=== PATIENT | female | born 1985 | race American Indian/Alaskan Native ===

== ENCOUNTER 2018-01-18 18:53 | Emergency (ER) | payer OTHER ==
[2018-01-18 20:58] LABS: Bacteria,Urine 1+ /HPF (Negative); Bilirubin,Urine NEG (Negative); Blood,Urine NEG (Negative); Color,Urine Yellow (Yellow); Mucus,Urine FEW /HPF; Urobilinogen,Urine < 2.0 mg/dL (<2.0)
[2018-01-18 21:01] LABS: HCG Qualitative,Urine Negative (Negative)
[2018-01-18] MEDS ORDERED: CATAPRES PO ONE (22:15)
--- NOTE | 2018-01-18 22:37 | Emergency Department Report ---
ED Female HPI - General Chief complaint: Urogenital-Female Stated complaint: SEVERE PAIN/BURNING IN VAGINA AREA Time Seen by Provider: 01/18/18 22:15 Source: patient Mode of arrival: Ambulatory Limitations: No Limitations - History of Present Illness Initial comments: This is a 32-year-old female nontoxic, well nourished in appearance, no acute signs of distress presents to the ED with c/o of dysuria, polyuria and vaginal irritation 2 days. Stated that she had a sexual activity without protection with albuterol prior to symptoms. Patient stated is she concerned about STD and wants empirical treatment. Patient denies any vaginal discharge or vaginal bleeding. Patient denies any fever, chills, nausea, vomiting, abdominal pain, body aches, back pain, numbness, tingling, headache, stiff neck, chest pain or shortness of breath. Patient denies any drug allergies. Past medical history includes prediabetes and patient stated she currently does not take any medication for this. MD Complaint: dysuria, possible STD -: days(s) (2) Radiation: non-radiating Severity: mild Severity scale (0 -10): 3 Quality: burning Consistency: constant Improves with: none Worsens with: urination Are you Now?: No Associated Symptoms: dysuria. denies: vaginal discharge, vaginal bleeding, abdominal pain, nausea/vomiting, fever/chills, headaches, loss of appetite, hematuria, rash, seizure, shortness of breath, syncope, weakness - Related Data Sexually active: Yes Previous Rx's Medication Instructions Recorded Last Taken Type Sulfamethoxazole/Trimethoprim 1 each PO BID #14 tablet 01/19/18 Unknown Rx [Bactrim DS TAB] amLODIPine [Norvasc] 5 mg PO DAILY #30 tab 01/19/18 Unknown Rx metFORMIN [Glucophage] 500 mg PO QDAY #30 tab 01/19/18 Unknown Rx metroNIDAZOLE [Flagyl] 500 mg PO Q12HR #14 tab 01/19/18 Unknown Rx Allergies Allergy/AdvReac Type Severity Reaction Status Date / Time No Known Allergies Allergy Unverified 01/18/18 19:03 ED Review of Systems ROS: Stated complaint: SEVERE PAIN/BURNING IN VAGINA AREA Other details as noted in HPI Constitutional: denies: chills, fever Eyes: denies: eye pain, eye discharge, vision change ENT: denies: ear pain, throat pain Respiratory: denies: cough, shortness of breath, wheezing Cardiovascular: denies: chest pain, palpitations Endocrine: no symptoms reported Gastrointestinal: denies: abdominal pain, nausea, diarrhea Genitourinary: urgency, dysuria, frequency. denies: discharge Musculoskeletal: denies: back pain, joint swelling, arthralgia Skin: denies: rash, lesions Neurological: denies: headache, weakness, paresthesias Psychiatric: denies: anxiety, depression Hematological/Lymphatic: denies: easy bleeding, easy bruising ED Past Medical Hx - Past Medical History Previous Medical History?: No Hx Diabetes: Yes (PREDIABETES) - Surgical History Past Surgical History?: No - Social History Smoking Status: Never Smoker Substance Use Type: None - Medications Home Medications: Home Medications Medication Instructions Recorded Confirmed Last Taken Type Sulfamethoxazole/Trimethoprim 1 each PO BID #14 tablet 01/19/18 Unknown Rx [Bactrim DS TAB] amLODIPine [Norvasc] 5 mg PO DAILY #30 tab 01/19/18 Unknown Rx metFORMIN [Glucophage] 500 mg PO QDAY #30 tab 01/19/18 Unknown Rx metroNIDAZOLE [Flagyl] 500 mg PO Q12HR #14 tab 01/19/18 Unknown Rx ED Physical Exam - General Limitations: No Limitations General appearance: alert, in no apparent distress - Head Head exam: Present: atraumatic, normocephalic - Eye Eye exam: Present: normal appearance Pupils: Present: normal accommodation - ENT ENT exam: Present: normal exam, mucous membranes moist - Neck Neck exam: Present: normal inspection, full ROM. Absent: tenderness, meningismus, lymphadenopathy - Respiratory Respiratory exam: Present: normal lung sounds bilaterally. Absent: respiratory distress, wheezes, rales, rhonchi, stridor, chest wall tenderness, accessory muscle use, decreased breath sounds, prolonged expiratory - Cardiovascular Cardiovascular Exam: Present: regular rate, normal rhythm, normal heart sounds. Absent: irregular rhythm, systolic murmur, diastolic murmur, rubs, gallop - GI/Abdominal GI/Abdominal exam: Present: soft, normal bowel sounds. Absent: distended, tenderness, guarding, rebound, rigid, diminished bowel sounds - Rectal Rectal exam: Present: deferred - External exam: Present: normal external exam, other (chaperoned Kathryn wastewater manager present during exam). Absent: erythema, swelling, lesions, lacerations, ecchymosis, bleeding Speculum exam: Present: normal speculum exam, other (chaperoned Kathryn wastewater manager present during exam). Absent: erythema, vaginal discharge, cervical discharge, vaginal bleeding, foreign body, tissue, laceration Bi-manual exam: Present: normal bi-manual exam, other (chaperoned Kathryn wastewater manager present during exam). Absent: cervical motion tendernes, adnexal tenderness, adnexal mass, uterine enlargement, uterine tenderness - Extremities Exam Extremities exam: Present: normal inspection, full ROM, normal capillary refill - Back Exam Back exam: Present: normal inspection, full ROM. Absent: tenderness, CVA tenderness (R), CVA tenderness (L), paraspinal tenderness, vertebral tenderness - Neurological Exam Neurological exam: Present: alert, oriented X3, normal gait - Psychiatric Psychiatric exam: Present: normal affect, normal mood - Skin Skin exam: Present: warm, dry, intact, normal color. Absent: rash ED Course Vital Signs 01/18/18 01/18/18 01/19/18 19:04 22:48 01:39 Temperature 99.1 F Pulse Rate 104 H 104 H Respiratory 20 Rate Blood Pressure 177/102 177/102 Blood Pressure 156/96 [Right] O2 Sat by Pulse 100 Oximetry - Reevaluation(s) Reevaluation #1: 01/18/18 22:36 Patient is speaking in full sentences with no signs of distress noted. - Consultations Consultation #1: 01/19/18 01:41 Patient has been consulted with Dr. Job V. about patient history, physical exam, and labs and agrees to ED plan of care and discharge plan of care. ED Medical Decision Making - Lab Data Result diagrams: 01/18/18 22:28 01/18/18 22:28 - Medical Decision Making This is a 32-year-old female that presents with UTI, DM, BV, and HTN. Patient is stable and was examined by me. Dr. Job V. has been consulted about patient and agrees to the ED plan of care and discharge. UA obtained indicate UTI. Labs obtained. Normal venous pH. Patient received 1 L of normal saline. Patient received 1 g Rocephin and 1 g azithromycin. Wet prep obtained. Gonorrhea/chlamydia obtained and pending. She was instructed to return in 3 days to obtain results. Patient is discharged with Flagyl and was instructed not to consume any alcohol while taking antibiotics. Patient received Catapres in the ED and blood pressure decreased. Patient is discharged with Bactrim. I will also start patient on Norvasc and Metformin. Patient was instructed to keep a daily diary of blood pressure and glucose is present to primary care doctor in 2-3 days or if symptoms worsen and continue to return to the ER as soon as possible. At time of discharge, the patient does not seem toxic or ill in appearance. No acute signs of distress noted. Patient agrees to discharge treatment plan of care. No further questions noted by the patient. Critical care attestation.: If time is entered above; I have spent that time in minutes in the direct care of this critically ill patient, excluding procedure time. ED Disposition Clinical Impression: Prediabetes, Bacterial vaginosis Hypertension Qualifiers: Hypertension type: unspecified Qualified Code(s): I10 - Essential (primary) hypertension UTI (urinary tract infection) Qualifiers: Urinary tract infection type: site unspecified Hematuria presence: without hematuria Qualified Code(s): N39.0 - Urinary tract infection, site not specified Disposition: DC- TO HOME OR SELFCARE Is pt being admited?: No Does the pt Need Aspirin: No Condition: Stable Instructions: Sulfamethoxazole/Trimethoprim (By mouth), Metronidazole (By mouth ), Amlodipine (By mouth), Bacterial Vaginosis (ED), Diabetes Mellitus Type 2 in Adults (ED), Hypertension (ED) Additional Instructions: Follow-up with a primary care doctor in 2-3 days or if symptoms worsen and continue return to emergency room as soon as possible. Keep a daily diary of your blood pressure and present it to your primary care doctor. Do not consume any alcohol while taking antibiotics. Prescriptions: amLODIPine [Norvasc] 5 mg PO DAILY #30 tab metFORMIN [Glucophage] 500 mg PO QDAY #30 tab metroNIDAZOLE [Flagyl] 500 mg PO Q12HR #14 tab Sulfamethoxazole/Trimethoprim [Bactrim DS TAB] 1 each PO BID #14 tablet Referrals: [facility] [Outside] - 3-5 Days [facility] [Outside] - 3-5 Days LAWANDA STRONG MD [Primary Care Provider] - 2-3 Days [facility], [Referring] - 2-3 Days KHANG DOHERTY MD [Staff Physician] - 2-3 Days Forms: Work/School Release Form(ED), STI Treatment and Prevention
[2018-01-18 23:20] LABS: Basophils # (Auto) 0.1 K/mm3 (0.0-0.1); Basophils % (Auto) 0.9 % (0.0-1.8); Eosinophils # (Auto) 0.1 K/mm3 (0.0-0.4); Eosinophils % (Auto) 0.8 % (0.0-4.3); Hematocrit 40.6 % (30.3-42.9); Hemoglobin 13.2 gm/dl (10.1-14.3); Lymphocytes # (Auto) 2.5 K/mm3 (1.2-5.4); Lymphocytes % (Auto) 33.3 % (13.4-35.0); Mean Corpuscular HGB Conc 32 % (30-34); Monocytes # (Auto) 0.6 K/mm3 (0.0-0.8); Monocytes % (Auto) 7.4 % (0.0-7.3); Platelet Count 296 K/mm3 (140-440); Red Blood Count 6.01 M/mm3 (3.65-5.03); Red Cell Distribution Width 16.2 % (13.2-15.2)
[2018-01-18 23:21] LABS: Mean Corpuscular Hemoglobin 22 pg (28-32); Mean Corpuscular Volume 68 fl (79-97)
[2018-01-18 23:25] LABS: BUN/Creatinine Ratio 12; Blood Urea Nitrogen 6 mg/dL (7-17); Calcium 9.4 mg/dL (8.4-10.2); Hemolysis Index 9
[2018-01-18] MEDS ORDERED: NACL 0.9% 1000 ML 1,000 ML IV ONE (23:41)
[2018-01-19 01:39] VITALS: BP 156/96
[2018-01-19] MEDS ORDERED: XYLOCAINE 1% MPF 5 mL INFILTRATI ONE (02:26)
[2018-01-19] MEDS ORDERED: ZITHROMAX PO ONE (02:26)
[2018-01-19] MEDS ORDERED: ROCEPHIN IM ONE (02:26)
== END 2018-01-19 04:11 | disposition home or self-care (01) ==
LOC: ED 18:53
DX: N39.0 Urinary tract infection, site not specified (principal); I10 Essential (primary) hypertension; N76.0 Acute vaginitis
CPT/HCPCS: 36415; 80048; 81001; 81025; 82805; 85025; 87210; 87591; 96360; 96372; 99284; J0696; J7030